=== PATIENT | male | born 1955 | race Native Hawaiian/Other Pacific Islander ===

== ENCOUNTER 2017-04-03 11:45 | Inpatient (IN) | payer OTHER ==
[~2017-04-03] VITALS: Ht 188 cm; Wt 85.4 kg
[2017-04-03 11:49] VITALS: BP 150/117; TEMP 98.5
[2017-04-03] MEDS ORDERED: TRAZ100T OR (11:53)
[2017-04-03] MEDS ORDERED: PAXIL40 MG PO (11:53)
[2017-04-03] MEDS ORDERED: BACTRIM1 TAB PO (11:53)
[2017-04-03] MEDS ORDERED: LISI20TA31 OR (11:54)
[2017-04-03] MEDS ORDERED: MOBIC15 MG PO (11:54)
[2017-04-03] MEDS ORDERED: OMEP20CA PO (11:54)
[2017-04-03 13:00] VITALS: BP 142/87; TEMP 98.5
[2017-04-03 13:04] LABS: PLATELET COUNT 407 K/uL (142-355)
[2017-04-03 13:09] LABS: POTASSIUM 3.8 mmol/L (3.6-5.2); SODIUM 135 mmol/L (136-145)
[2017-04-03 14:53] VITALS: BP 120/86; TEMP 98.4; Ht 188 cm; Wt 85.4 kg
[2017-04-03 16:00] VITALS: BP 119/88; TEMP 99
[2017-04-03 20:00] VITALS: BP 127/87; TEMP 98.3
[2017-04-04] VITALS: BP 132/94; TEMP 98.3
[2017-04-04 04:00] VITALS: BP 124/104; TEMP 97.9
[2017-04-04 07:12] LABS: PLATELET COUNT 380 K/uL (142-355)
[2017-04-04 07:20] LABS: POTASSIUM 3.6 mmol/L (3.6-5.2); SODIUM 128 mmol/L (136-145)
[2017-04-04 08:00] VITALS: BP 111/72; TEMP 97.8
[2017-04-04 12:00] VITALS: BP 122/80; TEMP 98
[2017-04-04 16:00] VITALS: BP 124/78; TEMP 98
[2017-04-04 20:00] VITALS: BP 123/74; TEMP 98.3
[2017-04-05] VITALS: BP 128/67; TEMP 98.3
[2017-04-05 04:00] VITALS: BP 135/106; TEMP 97.5
[2017-04-05 05:34] LABS: PLATELET COUNT 395 K/uL (142-355)
[2017-04-05 05:41] LABS: POTASSIUM 3.8 mmol/L (3.6-5.2); SODIUM 135 mmol/L (136-145)
[2017-04-05 08:00] VITALS: BP 110/72; TEMP 98.6
== END 2017-04-05 15:10 | DRG 603 ==
LOC: ED 11:45 → MED/SURG 13:38
PROVIDERS: ADMIT Family Medicine
DX: L03.113 Cellulitis of right upper limb (principal); I10 Essential (primary) hypertension; K21.9 Gastro-esophageal reflux disease without esophagitis; B95.61 Methicillin susceptible Staphylococcus aureus infection as the cause of diseases classified elsewhere
CPT/HCPCS: 36415; 80048; 80053; 83605; 83735; 85027; 86140; 87070; 87077; 87185; 87186; 87205; 96365; 96366; 96367; 96375; 96376; 99284; J1170; J2270; J2405; J7040